=== PATIENT | male | born 1970 | race Caucasian/White ===

== ENCOUNTER 2018-03-18 12:41 | Emergency (ER) | payer BC ==
[2018-03-18] MEDS: DIPHTH/TET/ACEL PERTUSS (ADULT) 0.5 ML VIAL IM* (13:16)
== END 2018-03-18 14:24 | disposition home or self-care (01) ==
LOC: FTE 14:24
DX: S51.812A Laceration without foreign body of left forearm, initial encounter (principal); J45.909 Unspecified asthma, uncomplicated; E66.9 Obesity, unspecified; W26.8XXA Contact with other sharp object(s), not elsewhere classified, initial encounter; Y92.9 Unspecified place or not applicable; Z23 Encounter for immunization; Z68.43 Body mass index [BMI] 50.0-59.9, adult; Z79.82 Long term (current) use of aspirin; Z87.891 Personal history of nicotine dependence
CPT/HCPCS: 90471; 90715; 99283-25

== ENCOUNTER 2018-06-05 09:15 | Inpatient (IN) | payer BC ==
[2018-06-05] MEDS: ASPIRIN 81 MG TAB PO (09:37)
[2018-06-05] MEDS: NITROGLYCERIN (SL) 0.4 MG TAB SL (09:37)
[2018-06-05] MEDS: FUROSEMIDE 40 MG INJ IV (09:39)
[2018-06-05 09:55] LABS: ADD MAN DIFF? NO
[2018-06-05 10:04] LABS: BASOPHILS % 0.6 % (0.0-2.0); EOSINOPHILS # 0.1 10^3/ul (0.0-0.5); EOSINOPHILS % 1.8 % (0.0-7.0); HEMATOCRIT 48.2 % (42.0-52.0); HEMOGLOBIN 15.9 g/dl (14.0-18.0); LYMPHOCYTES # 0.9 10^3/ul (0.8-2.9); LYMPHOCYTES % 12.8 % (15.0-51.0); MEAN CORPUSCULAR HEMOGLOBIN 32.6 pg (29.0-33.0); MEAN PLATELET VOLUME 9.8 fl (7.4-10.4); MONOCYTE # 0.6 10^3/ul (0.3-0.9); MONOCYTES % 8.6 % (0.0-11.0); NEUTROPHIL # 5.5 10^3/ul (1.6-7.5); NEUTROPHILS % 75.8 % (39.0-77.0); PLATELET COUNT 181 10^3/UL (140-415); RED BLOOD COUNT 4.87 10^6/ul (4.70-6.10); RED CELL DISTRIBUTION WIDTH 13.2 % (11.5-14.5)
[2018-06-05 10:04] LABS: WHITE BLOOD COUNT 7.2 10^3/ul (4.8-10.8)
[2018-06-05 10:20] LABS: PARTIAL THROMBOPLASTIN TIME 25.9 Sec (23.0-35.0); PROTIME 12.2 Sec (11.9-14.9)
[2018-06-05 10:22] LABS: ALANINE AMINOTRANSFERASE 98 IU/L (13-69); ALBUMIN 3.7 g/dl (3.3-4.9); ALBUMIN/GLOBULIN RATIO 1.08; ALKALINE PHOSPHATASE 110 IU/L (42-121); ANION GAP 11 (5-13); ASPARTATE AMINO TRANSFERASE 102 IU/L (15-46); BILIRUBIN,INDIRECT 0.8 mg/dl (0-1.1); BILIRUBIN,TOTAL 0.8 mg/dl (0.2-1.3); BLOOD UREA NITROGEN 14 mg/dl (7-20); CARBON DIOXIDE 29 mmol/L (21-31); CHLORIDE 103 mmol/L (97-110); CREATININE 0.71 mg/dl (0.61-1.24); Estimated GFR > 60 mL/min (>60); GLUCOSE 119 mg/dl (70-220); LIPASE 35 U/L (23-300); POTASSIUM 4.6 mmol/L (3.5-5.1); SODIUM 143 mmol/L (135-144); TOTAL PROTEIN 7.1 g/dl (6.1-8.1)
[2018-06-05 10:35] LABS: B-TYPE NATRIURETIC PEPTIDE 412 PG/ML (0-125); TROPONIN-I 0.013 ng/ml (0.000-0.120)
[2018-06-05] MEDS ORDERED: NITROGLYCERIN (SL) 0.4 MG TAB SL (18:00)
[2018-06-05] MEDS ORDERED: ACETAMINOPHEN 325 MG TAB PO (18:00)
[2018-06-05] MEDS ORDERED: ONDANSETRON 4 MG INJ IV (18:00)
[2018-06-05] MEDS ORDERED: ZOLPIDEM 5 MG TAB PO (18:00)
[2018-06-05] MEDS ORDERED: LORAZEPAM 0.5 MG TAB PO (18:00)
[2018-06-05] MEDS ORDERED: HYDROCODONE/APAP (5/325) TAB PO (18:00)
[2018-06-05] MEDS: DOCUSATE SODIUM 100 MG CAP PO (18:24)
[2018-06-05 23:43] LABS: CREATINE KINASE 102 IU/L (23-200)
[2018-06-05 23:53] LABS: CK INDEX 2.5; TROPONIN-I < 0.012 ng/ml (0.000-0.120)
[2018-06-06 06:17] LABS: ADD MAN DIFF? NO
[2018-06-06 06:23] LABS: WHITE BLOOD COUNT 6.4 10^3/ul (4.8-10.8)
[2018-06-06 06:23] LABS: BASOPHILS % 0.3 % (0.0-2.0); EOSINOPHILS # 0.3 10^3/ul (0.0-0.5); HEMATOCRIT 48.8 % (42.0-52.0); HEMOGLOBIN 15.7 g/dl (14.0-18.0); LYMPHOCYTES # 1.1 10^3/ul (0.8-2.9); LYMPHOCYTES % 16.5 % (15.0-51.0); MEAN CORPUSCULAR HEMOGLOBIN 32.4 pg (29.0-33.0); MEAN CORPUSCULAR HGB CONC 32.2 g/dl (32.0-37.0); MEAN CORPUSCULAR VOLUME 100.8 fl (82.0-101.0); MEAN PLATELET VOLUME 9.9 fl (7.4-10.4); MONOCYTE # 0.7 10^3/ul (0.3-0.9); MONOCYTES % 10.3 % (0.0-11.0); NEUTROPHIL # 4.4 10^3/ul (1.6-7.5); NEUTROPHILS % 68.7 % (39.0-77.0); PLATELET COUNT 190 10^3/UL (140-415); RED BLOOD COUNT 4.84 10^6/ul (4.70-6.10); RED CELL DISTRIBUTION WIDTH 13.2 % (11.5-14.5)
[2018-06-06 06:43] LABS: CREATINE KINASE 79 IU/L (23-200)
[2018-06-06 06:48] LABS: ANION GAP 7 (5-13); BLOOD UREA NITROGEN 14 mg/dl (7-20); CALCIUM 8.9 mg/dl (8.4-10.2); CARBON DIOXIDE 32 mmol/L (21-31); CHLORIDE 103 mmol/L (97-110); CREATININE 0.66 mg/dl (0.61-1.24); Estimated GFR > 60 mL/min (>60); GLUCOSE 121 mg/dl (70-220); MAGNESIUM 2.1 mg/dl (1.7-2.5); POTASSIUM 4.4 mmol/L (3.5-5.1); SODIUM 142 mmol/L (135-144)
[2018-06-06 06:54] LABS: CK INDEX 3.1; CK-MB 2.46 ng/ml (0.0-2.4); TROPONIN-I < 0.012 ng/ml (0.000-0.120)
[2018-06-06] MEDS: FUROSEMIDE 40 MG INJ IV (08:08)
[2018-06-06] MEDS: DOCUSATE SODIUM 100 MG CAP PO ×2 (08:08→21:00)
[2018-06-06] MEDS: ASPIRIN 81 MG TAB PO (08:09)
[2018-06-06] MEDS: ENOXAPARIN 40 MG/0.4 ML SYG SC (08:15)
[2018-06-06] MEDS: ARFORMOTEROL TARTRATE 15MCG/2 ML AMP NEB ×2 (13:30→20:00)
[2018-06-06] MEDS: CHLORDIAZEPOXIDE 25 MG CAP PO (21:24)
[2018-06-07 06:08] LABS: ADD MAN DIFF? NO
[2018-06-07 06:16] LABS: BASOPHILS % 0.3 % (0.0-2.0); EOSINOPHILS # 0.3 10^3/ul (0.0-0.5); EOSINOPHILS % 4.3 % (0.0-7.0); HEMATOCRIT 51.4 % (42.0-52.0); HEMOGLOBIN 16.8 g/dl (14.0-18.0); LYMPHOCYTES % 15.8 % (15.0-51.0); MEAN CORPUSCULAR HEMOGLOBIN 32.7 pg (29.0-33.0); MEAN CORPUSCULAR HGB CONC 32.7 g/dl (32.0-37.0); MEAN CORPUSCULAR VOLUME 100.2 fl (82.0-101.0); MEAN PLATELET VOLUME 9.7 fl (7.4-10.4); MONOCYTE # 0.6 10^3/ul (0.3-0.9); MONOCYTES % 9.6 % (0.0-11.0); NEUTROPHIL # 4.4 10^3/ul (1.6-7.5); NEUTROPHILS % 69.7 % (39.0-77.0); PLATELET COUNT 187 10^3/UL (140-415); RED BLOOD COUNT 5.13 10^6/ul (4.70-6.10)
[2018-06-07 06:16] LABS: WHITE BLOOD COUNT 6.3 10^3/ul (4.8-10.8)
[2018-06-07 06:45] LABS: ANION GAP 6 (5-13); BLOOD UREA NITROGEN 12 mg/dl (7-20); CALCIUM 9.1 mg/dl (8.4-10.2); CARBON DIOXIDE 37 mmol/L (21-31); CHLORIDE 98 mmol/L (97-110); CREATININE 0.74 mg/dl (0.61-1.24); Estimated GFR > 60 mL/min (>60); GLUCOSE 125 mg/dl (70-220); SODIUM 141 mmol/L (135-144)
[2018-06-07] MEDS: ARFORMOTEROL TARTRATE 15MCG/2 ML AMP NEB (08:05)
[2018-06-07] MEDS: ASPIRIN 81 MG TAB PO (08:47)
[2018-06-07] MEDS: DOCUSATE SODIUM 100 MG CAP PO (08:47)
[2018-06-07] MEDS: CHLORDIAZEPOXIDE 25 MG CAP PO (08:47)
[2018-06-07] MEDS: FUROSEMIDE 40 MG INJ IV (08:47)
[2018-06-07] MEDS: ENOXAPARIN 40 MG/0.4 ML SYG SC (09:39)
== END 2018-06-07 15:20 | disposition home or self-care (01) | DRG 292 ==
LOC: E/R 09:15 → TEL 11:08
DX: I11.0 Hypertensive heart disease with heart failure (principal); Z68.43 Body mass index [BMI] 50.0-59.9, adult; I50.23 Acute on chronic systolic (congestive) heart failure; E66.01 Morbid (severe) obesity due to excess calories; K70.0 Alcoholic fatty liver; D75.1 Secondary polycythemia; I42.6 Alcoholic cardiomyopathy; F10.10 Alcohol abuse, uncomplicated; J45.909 Unspecified asthma, uncomplicated; F32.9 Major depressive disorder, single episode, unspecified; G47.33 Obstructive sleep apnea (adult) (pediatric); Z71.3 Dietary counseling and surveillance; Z87.891 Personal history of nicotine dependence
CPT/HCPCS: 36415; 71045; 80048; 80053; 82550; 82553; 83690; 83735; 83880; 84484; 85025; 85610; 85730; 93005; 93306; 94664; 96374; 99285-25

== ENCOUNTER 2018-10-05 00:07 | Inpatient (IN) | payer BC ==
[2018-10-05 02:02] LABS: ADD MAN DIFF? NO
[2018-10-05 02:05] LABS: BASOPHILS % 0.3 % (0.0-2.0); EOSINOPHILS # 0.4 10^3/ul (0.0-0.5); EOSINOPHILS % 5.2 % (0.0-7.0); HEMATOCRIT 48.8 % (42.0-52.0); HEMOGLOBIN 15.7 g/dl (14.0-18.0); LYMPHOCYTES # 0.9 10^3/ul (0.8-2.9); LYMPHOCYTES % 13.4 % (15.0-51.0); MEAN CORPUSCULAR HEMOGLOBIN 31.7 pg (29.0-33.0); MEAN CORPUSCULAR HGB CONC 32.2 g/dl (32.0-37.0); MEAN CORPUSCULAR VOLUME 98.4 fl (82.0-101.0); MEAN PLATELET VOLUME 9.7 fl (7.4-10.4); MONOCYTE # 0.6 10^3/ul (0.3-0.9); MONOCYTES % 8.5 % (0.0-11.0); NEUTROPHILS % 72.2 % (39.0-77.0); PLATELET COUNT 167 10^3/UL (140-415); RED BLOOD COUNT 4.96 10^6/ul (4.70-6.10); RED CELL DISTRIBUTION WIDTH 13.2 % (11.5-14.5)
[2018-10-05 02:28] LABS: INR 1.03; PROTIME 13.6 Sec (11.9-14.9); PT RATIO 1.1
[2018-10-05 02:32] LABS: ANION GAP 8 (5-13); BLOOD UREA NITROGEN 21 mg/dl (7-20); CALCIUM 8.7 mg/dl (8.4-10.2); CARBON DIOXIDE 33 mmol/L (21-31); CHLORIDE 103 mmol/L (97-110); CREATININE 0.85 mg/dl (0.61-1.24); Estimated GFR > 60 mL/min (>60); GLUCOSE 126 mg/dl (70-220); POTASSIUM 4.5 mmol/L (3.5-5.1); SODIUM 144 mmol/L (135-144)
[2018-10-05 02:44] LABS: B-TYPE NATRIURETIC PEPTIDE 1250 PG/ML (0-125); TROPONIN-I 0.024 ng/ml (0.000-0.120)
[2018-10-05] MEDS: IPRATROPIUM (NEB) 0.5 MG/2.5 ML AMP INH (04:04)
[2018-10-05] MEDS: ALBUTEROL 0.5% (NEB) 2.5 MG/0.5 ML AMP INH (04:04)
[2018-10-05] MEDS ORDERED: ACETAMINOPHEN 325 MG TAB PO ×2 (04:30→05:00)
[2018-10-05] MEDS ORDERED: ONDANSETRON 4 MG INJ IV (04:30)
[2018-10-05] MEDS ORDERED: ONDANSETRON 4 MG TAB PO (05:00)
[2018-10-05] MEDS ORDERED: BISACODYL (EC) 5 MG TAB PO (05:00)
[2018-10-05] MEDS ORDERED: NACL 0.9% 3 ML SYG IV (05:00)
[2018-10-05] MEDS ORDERED: DOCUSATE SODIUM 100 MG CAP PO (05:00)
[2018-10-05] MEDS ORDERED: NITROGLYCERIN (SL) 0.4 MG TAB SL (05:00)
[2018-10-05] MEDS: FUROSEMIDE 40 MG INJ IV ×3 (06:13→17:06)
[2018-10-05] MEDS: ASPIRIN 81 MG TAB PO ×2 (06:14→09:31)
[2018-10-05] MEDS: METHYLPREDNISOLONE 125 MG INJ IV (06:14)
[2018-10-05 06:48] LABS: TROPONIN-I 0.031 ng/ml (0.000-0.120)
[2018-10-05] MEDS: ENOXAPARIN 30 MG/0.3 ML SYG SC (09:33)
[2018-10-05] MEDS: LEVALBUTEROL (NEB) 1.25 MG/0.5 ML AMP HHN ×3 (12:55→20:31)
[2018-10-05 13:21] LABS: AADO2 Arterial 40.1 mmHg (7.0-24.0); Allen Test ACCEPTAB; Arterial Base Excess 2.9 mmol/L (-3.0-3); Arterial Blood Gas Oxygen Sat 94.1 mmHG (95.0-98.0); Arterial COHb 0.8 % (0.0-3.0); Arterial Fraction of Oxyhgb 93.1 % (93.0-99.0); Arterial MetHb 0.3 % (0.0-1.5); Arterial pCO2 66.6 mmhg (35-45); MODE NASAL CANNULA; Site Right Radial
[2018-10-05] MEDS: LISINOPRIL 10 MG TAB PO (14:29)
[2018-10-06] MEDS: LEVALBUTEROL (NEB) 1.25 MG/0.5 ML AMP HHN ×6 (00:18→19:57)
[2018-10-06] MEDS: FUROSEMIDE 40 MG INJ IV (05:44)
[2018-10-06 05:54] LABS: ADD MAN DIFF? NO
[2018-10-06 06:02] LABS: ABNORMAL IP MESSAGE 1; BASOPHILS % 0.1 % (0.0-2.0); HEMATOCRIT 49.3 % (42.0-52.0); HEMOGLOBIN 15.7 g/dl (14.0-18.0); LYMPHOCYTES # 0.5 10^3/ul (0.8-2.9); LYMPHOCYTES % 3.8 % (15.0-51.0); MEAN CORPUSCULAR HEMOGLOBIN 31.7 pg (29.0-33.0); MEAN CORPUSCULAR HGB CONC 31.8 g/dl (32.0-37.0); MEAN CORPUSCULAR VOLUME 99.4 fl (82.0-101.0); MEAN PLATELET VOLUME 9.7 fl (7.4-10.4); MONOCYTE # 0.6 10^3/ul (0.3-0.9); MONOCYTES % 4.6 % (0.0-11.0); NEUTROPHIL # 11.2 10^3/ul (1.6-7.5); PLATELET COUNT 159 10^3/UL (140-415); POSITIVE DIFF @See below; RED BLOOD COUNT 4.96 10^6/ul (4.70-6.10); RED CELL DISTRIBUTION WIDTH 13.2 % (11.5-14.5)
[2018-10-06 06:02] LABS: WHITE BLOOD COUNT 12.3 10^3/ul (4.8-10.8)
[2018-10-06 06:34] LABS: ALANINE AMINOTRANSFERASE 40 IU/L (13-69); ALBUMIN/GLOBULIN RATIO 1.29; ALKALINE PHOSPHATASE 101 IU/L (42-121); ANION GAP 7 (5-13); ASPARTATE AMINO TRANSFERASE 33 IU/L (15-46); BILIRUBIN,INDIRECT 0.8 mg/dl (0-1.1); BILIRUBIN,TOTAL 0.8 mg/dl (0.2-1.3); BLOOD UREA NITROGEN 16 mg/dl (7-20); CALCIUM 8.9 mg/dl (8.4-10.2); CARBON DIOXIDE 35 mmol/L (21-31); CHLORIDE 96 mmol/L (97-110); CHOL/HDL RATIO 2.8 RATIO; CHOLESTEROL 150 mg/dl (100-200); Estimated GFR > 60 mL/min (>60); GLUCOSE 114 mg/dl (70-220); HDL CHOLESTEROL 52 mg/dl (27-67); LDL CHOLESTEROL,CALCULATED 87 mg/dl; MAGNESIUM 2.1 mg/dl (1.7-2.5); POTASSIUM 4.7 mmol/L (3.5-5.1); SODIUM 138 mmol/L (135-144); TOTAL PROTEIN 7.1 g/dl (6.1-8.1); TRIGLYCERIDES 57 mg/dl (0-149)
[2018-10-06 06:43] LABS: HEMOGLOBIN A1C 5.9 % (0-5.9)
[2018-10-06 07:00] LABS: THYROID STIMULATING HORMONE 0.783 MIU/L (0.465-4.680)
[2018-10-06] MEDS: LISINOPRIL 10 MG TAB PO (08:13)
[2018-10-06] MEDS: ASPIRIN 81 MG TAB PO (08:14)
[2018-10-06] MEDS: ENOXAPARIN 30 MG/0.3 ML SYG SC (08:43)
[2018-10-06] MEDS: FUROSEMIDE 20 MG INJ IV (17:11)
[2018-10-07] MEDS: LEVALBUTEROL (NEB) 1.25 MG/0.5 ML AMP HHN ×6 (01:17→22:00)
[2018-10-07] MEDS: FUROSEMIDE 20 MG INJ IV (05:30)
[2018-10-07 05:54] LABS: ADD MAN DIFF? NO
[2018-10-07 06:03] LABS: WHITE BLOOD COUNT 8.4 10^3/ul (4.8-10.8)
[2018-10-07 06:03] LABS: BASOPHIL # 0.1 10^3/ul (0.0-0.1); BASOPHILS % 0.6 % (0.0-2.0); EOSINOPHILS # 0.3 10^3/ul (0.0-0.5); EOSINOPHILS % 3.4 % (0.0-7.0); HEMATOCRIT 53.1 % (42.0-52.0); HEMOGLOBIN 16.4 g/dl (14.0-18.0); LYMPHOCYTES # 1.3 10^3/ul (0.8-2.9); LYMPHOCYTES % 15.6 % (15.0-51.0); MEAN CORPUSCULAR HEMOGLOBIN 31.7 pg (29.0-33.0); MEAN CORPUSCULAR HGB CONC 30.9 g/dl (32.0-37.0); MEAN CORPUSCULAR VOLUME 102.5 fl (82.0-101.0); MEAN PLATELET VOLUME 9.9 fl (7.4-10.4); MONOCYTE # 0.8 10^3/ul (0.3-0.9); MONOCYTES % 9.4 % (0.0-11.0); NEUTROPHIL # 5.9 10^3/ul (1.6-7.5); NEUTROPHILS % 70.5 % (39.0-77.0); PLATELET COUNT 181 10^3/UL (140-415); RED BLOOD COUNT 5.18 10^6/ul (4.70-6.10); RED CELL DISTRIBUTION WIDTH 13.3 % (11.5-14.5)
[2018-10-07 06:48] LABS: ANION GAP 6 (5-13); BLOOD UREA NITROGEN 27 mg/dl (7-20); CALCIUM 8.6 mg/dl (8.4-10.2); CARBON DIOXIDE 39 mmol/L (21-31); CHLORIDE 98 mmol/L (97-110); CREATININE 0.99 mg/dl (0.61-1.24); Estimated GFR > 60 mL/min (>60); GLUCOSE 113 mg/dl (70-220); MAGNESIUM 2.3 mg/dl (1.7-2.5); POTASSIUM 4.9 mmol/L (3.5-5.1); SODIUM 143 mmol/L (135-144)
[2018-10-07] MEDS: ASPIRIN 81 MG TAB PO (08:30)
[2018-10-07] MEDS: LISINOPRIL 10 MG TAB PO (08:30)
[2018-10-07] MEDS: ENOXAPARIN 30 MG/0.3 ML SYG SC (09:28)
[2018-10-08] MEDS: LEVALBUTEROL (NEB) 1.25 MG/0.5 ML AMP HHN ×4 (01:26→13:32)
[2018-10-08] MEDS: LISINOPRIL 10 MG TAB PO (08:10)
[2018-10-08] MEDS: ASPIRIN 81 MG TAB PO (08:10)
[2018-10-08] MEDS: FUROSEMIDE 40 MG TAB PO (08:11)
[2018-10-08] MEDS: ENOXAPARIN 30 MG/0.3 ML SYG SC (08:23)
[2018-10-08] MEDS ORDERED: FUROSEMIDE 40 MG TAB PO (21:00)
== END 2018-10-08 17:20 | disposition home or self-care (01) | DRG 291 ==
LOC: TEL 10-07 21:38 → E/R 00:07 → TEL 04:06
PROC: 4A033R1 Measurement of Arterial Saturation, Peripheral, Percutaneous Approach (ICD-10-PCS; principal; 2018-10-05)
DX: I11.0 Hypertensive heart disease with heart failure (principal); J96.01 Acute respiratory failure with hypoxia; Z68.43 Body mass index [BMI] 50.0-59.9, adult; E66.2 Morbid (severe) obesity with alveolar hypoventilation; I50.23 Acute on chronic systolic (congestive) heart failure; J45.909 Unspecified asthma, uncomplicated; F10.10 Alcohol abuse, uncomplicated; I42.9 Cardiomyopathy, unspecified; Z87.891 Personal history of nicotine dependence; Z91.14 Patient's other noncompliance with medication regimen; Z79.82 Long term (current) use of aspirin
CPT/HCPCS: 36415; 36600; 71045; 80048; 80053; 80061; 82803; 83036; 83735; 83880; 84100; 84443; 84484; 85025; 85610; 93005; 94640; 94644; 94660; 94664; 99285-25

== ENCOUNTER 2018-10-16 04:45 | Inpatient (IN) | payer BC ==
[2018-10-16] MEDS ORDERED: ONDANSETRON 4 MG INJ IV (05:30)
[2018-10-16] MEDS ORDERED: DOCUSATE SODIUM 100 MG CAP PO (05:30)
[2018-10-16] MEDS ORDERED: NACL 0.9% 3 ML SYG IV (05:30)
[2018-10-16] MEDS ORDERED: BISACODYL (EC) 5 MG TAB PO (05:30)
[2018-10-16] MEDS: FUROSEMIDE 40 MG INJ IV ×2 (06:31→18:00)
[2018-10-16] MEDS: HEPARIN 5,000 UNIT/1 ML VIAL SC ×3 (06:38→21:25)
[2018-10-16 07:02] LABS: ADD MAN DIFF? NO
[2018-10-16 07:12] LABS: BASOPHILS % 0.5 % (0.0-2.0); EOSINOPHILS # 0.2 10^3/ul (0.0-0.5); EOSINOPHILS % 2.2 % (0.0-7.0); HEMATOCRIT 52.2 % (42.0-52.0); HEMOGLOBIN 16.6 g/dl (14.0-18.0); MEAN CORPUSCULAR HEMOGLOBIN 31.4 pg (29.0-33.0); MEAN CORPUSCULAR HGB CONC 31.8 g/dl (32.0-37.0); MEAN CORPUSCULAR VOLUME 98.7 fl (82.0-101.0); MEAN PLATELET VOLUME 9.7 fl (7.4-10.4); MONOCYTE # 0.8 10^3/ul (0.3-0.9); MONOCYTES % 11.4 % (0.0-11.0); NEUTROPHIL # 5.2 10^3/ul (1.6-7.5); NEUTROPHILS % 71.5 % (39.0-77.0); PLATELET COUNT 189 10^3/UL (140-415); RED BLOOD COUNT 5.29 10^6/ul (4.70-6.10); RED CELL DISTRIBUTION WIDTH 13.5 % (11.5-14.5)
[2018-10-16 07:12] LABS: WHITE BLOOD COUNT 7.3 10^3/ul (4.8-10.8)
[2018-10-16 07:27] LABS: ALANINE AMINOTRANSFERASE 33 IU/L (13-69); ALBUMIN 4.3 g/dl (3.3-4.9); ALBUMIN/GLOBULIN RATIO 1.22; ALKALINE PHOSPHATASE 77 IU/L (42-121); ANION GAP 10 (5-13); ASPARTATE AMINO TRANSFERASE 51 IU/L (15-46); BILIRUBIN,INDIRECT 1.6 mg/dl (0-1.1); BILIRUBIN,TOTAL 1.6 mg/dl (0.2-1.3); BLOOD UREA NITROGEN 24 mg/dl (7-20); CALCIUM 9.3 mg/dl (8.4-10.2); CARBON DIOXIDE 31 mmol/L (21-31); CHLORIDE 100 mmol/L (97-110); CREATININE 0.88 mg/dl (0.61-1.24); Estimated GFR > 60 mL/min (>60); GLUCOSE 107 mg/dl (70-220); POTASSIUM 4.5 mmol/L (3.5-5.1); SODIUM 141 mmol/L (135-144); TOTAL PROTEIN 7.8 g/dl (6.1-8.1)
[2018-10-16 07:34] LABS: B-TYPE NATRIURETIC PEPTIDE 2320 PG/ML (0-125)
[2018-10-16] MEDS: ASPIRIN 81 MG TAB PO (08:32)
[2018-10-16] MEDS: POTASSIUM CHLORIDE (SR) 20 MEQ TAB PO (08:32)
[2018-10-16] MEDS: LISINOPRIL 10 MG TAB PO (08:32)
[2018-10-16] MEDS: HYDROCODONE/APAP (5/325) TAB PO ×2 (17:59→23:42)
[2018-10-17] MEDS: FUROSEMIDE 40 MG INJ IV ×2 (05:09→18:25)
[2018-10-17] MEDS: HEPARIN 5,000 UNIT/1 ML VIAL SC ×3 (06:46→22:49)
[2018-10-17 07:23] LABS: ADD MAN DIFF? NO
[2018-10-17 07:28] LABS: WHITE BLOOD COUNT 7.6 10^3/ul (4.8-10.8)
[2018-10-17 07:28] LABS: BASOPHIL # 0.1 10^3/ul (0.0-0.1); BASOPHILS % 0.7 % (0.0-2.0); EOSINOPHILS # 0.3 10^3/ul (0.0-0.5); EOSINOPHILS % 4.2 % (0.0-7.0); HEMATOCRIT 52.6 % (42.0-52.0); HEMOGLOBIN 16.9 g/dl (14.0-18.0); LYMPHOCYTES % 13.4 % (15.0-51.0); MEAN CORPUSCULAR HEMOGLOBIN 31.1 pg (29.0-33.0); MEAN CORPUSCULAR HGB CONC 32.1 g/dl (32.0-37.0); MEAN CORPUSCULAR VOLUME 96.9 fl (82.0-101.0); MEAN PLATELET VOLUME 9.6 fl (7.4-10.4); MONOCYTE # 0.8 10^3/ul (0.3-0.9); MONOCYTES % 10.1 % (0.0-11.0); NEUTROPHIL # 5.4 10^3/ul (1.6-7.5); NEUTROPHILS % 71.1 % (39.0-77.0); PLATELET COUNT 192 10^3/UL (140-415); RED BLOOD COUNT 5.43 10^6/ul (4.70-6.10); RED CELL DISTRIBUTION WIDTH 13.5 % (11.5-14.5)
[2018-10-17 07:45] LABS: PHOSPHORUS 5.2 mg/dl (2.5-4.9)
[2018-10-17 07:45] LABS: MAGNESIUM 1.9 mg/dl (1.7-2.5)
[2018-10-17 07:48] LABS: ALANINE AMINOTRANSFERASE 34 IU/L (13-69); ALBUMIN 4.4 g/dl (3.3-4.9); ALBUMIN/GLOBULIN RATIO 1.25; ALKALINE PHOSPHATASE 89 IU/L (42-121); ANION GAP 10 (5-13); ASPARTATE AMINO TRANSFERASE 42 IU/L (15-46); BILIRUBIN,INDIRECT 1.4 mg/dl (0-1.1); BILIRUBIN,TOTAL 1.4 mg/dl (0.2-1.3); BLOOD UREA NITROGEN 26 mg/dl (7-20); CALCIUM 8.7 mg/dl (8.4-10.2); CARBON DIOXIDE 35 mmol/L (21-31); CHLORIDE 95 mmol/L (97-110); CREATININE 0.92 mg/dl (0.61-1.24); Estimated GFR > 60 mL/min (>60); GLUCOSE 106 mg/dl (70-220); POTASSIUM 4.9 mmol/L (3.5-5.1); SODIUM 140 mmol/L (135-144); TOTAL PROTEIN 7.9 g/dl (6.1-8.1)
[2018-10-17] MEDS: POTASSIUM CHLORIDE (SR) 20 MEQ TAB PO (08:28)
[2018-10-17] MEDS: ASPIRIN 81 MG TAB PO (08:28)
[2018-10-17] MEDS: LISINOPRIL 10 MG TAB PO (08:28)
[2018-10-17] MEDS: HYDROCODONE/APAP (5/325) TAB PO (21:04)
[2018-10-17] MEDS: LOPERAMIDE 2 MG CAP PO (21:05)
[2018-10-18] MEDS: ACETAMINOPHEN 325 MG TAB PO (03:20)
[2018-10-18] MEDS: CEPASTAT LOZENGE MT (03:37)
[2018-10-18] MEDS: FUROSEMIDE 40 MG INJ IV ×2 (05:08→08:06)
[2018-10-18] MEDS: HEPARIN 5,000 UNIT/1 ML VIAL SC ×2 (05:43→13:59)
[2018-10-18] MEDS: ASPIRIN 81 MG TAB PO (08:03)
[2018-10-18] MEDS: LISINOPRIL 10 MG TAB PO (08:04)
[2018-10-18] MEDS: LACTOBACILLUS RHAMNOSUS CAP PO ×2 (08:04→11:57)
[2018-10-18] MEDS: POTASSIUM CHLORIDE (SR) 20 MEQ TAB PO (08:04)
[2018-10-18 08:39] LABS: ADD MAN DIFF? NO
[2018-10-18 08:44] LABS: WHITE BLOOD COUNT 9.3 10^3/ul (4.8-10.8)
[2018-10-18 08:44] LABS: BASOPHIL # 0.1 10^3/ul (0.0-0.1); BASOPHILS % 0.5 % (0.0-2.0); EOSINOPHILS # 0.4 10^3/ul (0.0-0.5); HEMATOCRIT 50.1 % (42.0-52.0); HEMOGLOBIN 16.1 g/dl (14.0-18.0); LYMPHOCYTES % 10.7 % (15.0-51.0); MEAN CORPUSCULAR HEMOGLOBIN 31.2 pg (29.0-33.0); MEAN CORPUSCULAR HGB CONC 32.1 g/dl (32.0-37.0); MEAN CORPUSCULAR VOLUME 97.1 fl (82.0-101.0); MEAN PLATELET VOLUME 9.9 fl (7.4-10.4); MONOCYTES % 10.6 % (0.0-11.0); NEUTROPHIL # 6.8 10^3/ul (1.6-7.5); NEUTROPHILS % 73.7 % (39.0-77.0); PLATELET COUNT 197 10^3/UL (140-415); RED BLOOD COUNT 5.16 10^6/ul (4.70-6.10); RED CELL DISTRIBUTION WIDTH 13.2 % (11.5-14.5)
[2018-10-18 09:04] LABS: ANION GAP 9 (5-13); BLOOD UREA NITROGEN 25 mg/dl (7-20); CALCIUM 8.7 mg/dl (8.4-10.2); CARBON DIOXIDE 35 mmol/L (21-31); CHLORIDE 96 mmol/L (97-110); CREATININE 0.78 mg/dl (0.61-1.24); Estimated GFR > 60 mL/min (>60); GLUCOSE 111 mg/dl (70-220); POTASSIUM 4.5 mmol/L (3.5-5.1); SODIUM 140 mmol/L (135-144)
[2018-10-18 09:09] LABS: PHOSPHORUS 3.8 mg/dl (2.5-4.9)
[2018-10-18 09:09] LABS: MAGNESIUM 2.3 mg/dl (1.7-2.5)
== END 2018-10-18 16:17 | disposition home or self-care (01) | DRG 292 ==
LOC: TEL 04:45
DX: I11.0 Hypertensive heart disease with heart failure (principal); Z68.43 Body mass index [BMI] 50.0-59.9, adult; I50.23 Acute on chronic systolic (congestive) heart failure; E66.01 Morbid (severe) obesity due to excess calories; G47.33 Obstructive sleep apnea (adult) (pediatric); I27.20 Pulmonary hypertension, unspecified; I42.9 Cardiomyopathy, unspecified; M72.2 Plantar fascial fibromatosis; S86.311A Strain of muscle(s) and tendon(s) of peroneal muscle group at lower leg level, right leg, initial encounter
CPT/HCPCS: 71045; 73718; 73721; 80048; 80053; 83735; 83880; 84100; 85025; 93306; 94660; 97162

== ENCOUNTER 2018-11-15 20:06 | Emergency (ER) | payer BC ==
[2018-11-15] MEDS: METHOCARBAMOL 750 MG TAB PO (23:40)
== END 2018-11-16 00:36 | disposition home or self-care (01) ==
LOC: FTE 11-16 00:36
DX: M54.5 Low back pain (principal); M54.2 Cervicalgia; J44.9 Chronic obstructive pulmonary disease, unspecified; I50.9 Heart failure, unspecified; I10 Essential (primary) hypertension; Z79.82 Long term (current) use of aspirin; Z87.891 Personal history of nicotine dependence
CPT/HCPCS: 99283; Z7610